=== PATIENT | male | born 1960 | race Caucasian/White ===

== ENCOUNTER 2016-03-19 11:58 | Emergency (ER) | payer MEDICARE, MEDICAID ==
[~2016-03-19] VITALS: Ht 182.9 cm; Wt 149.2 kg
[~2016-03-19 11:58] MED LIST: CHOL1CAP6 PO; FERR324T4 PO; FURO1TAB93 PO; FURO80 PO; LISI-363 PO; METF-324 PO; METO50TA PO; NOVONP2 SQ; NOVORP2 SQ; OMEP20TA39 PO; ONDA1TAB16 PO; PERC5TAB12 PO; SIMV40 PO; TAMS0.4C67 PO; TERA2CAP3 PO; VENL-39 PO
[2016-03-19 11:59] VITALS: BP 141/80; PULSE 69; RESP 20; TEMP 99.2; O2SAT 97
[2016-03-19] MEDS ORDERED: METF500T PO (12:10)
[2016-03-19] MEDS ORDERED: FURO20TA PO (12:10)
[2016-03-19] MEDS ORDERED: METO50TA PO (12:10)
[2016-03-19] MEDS ORDERED: OMEP20TA PO (12:10)
[2016-03-19] MEDS ORDERED: IRON18TA2 PO (12:10)
[2016-03-19] MEDS ORDERED: ORPHENADRINE INJ 60 MG/2 ML AMP IV ONE (12:30)
[2016-03-19] MEDS ORDERED: ONDANSETRON HCL 4 MG/2 ML VIAL IV PUSH ONE (12:30)
[2016-03-19] MEDS ORDERED: DEXAMETHASONE SOD PHOS 4 MG/ML VIAL IV PUSH ONE (12:30)
[2016-03-19] MEDS ORDERED: KETOROLAC TROMETHAMINE 30 MG/ML (IVP) VIAL IV PUSH ONE (12:30)
--- NOTE | 2016-03-19 13:00 | PD ---
HPI Chief Complaint: Musculoskeletal Complaint Time Seen by Provider: 12:00 Travel History International Travel<30 days: No Contact w/Intl Traveler<30days: No Traveled to known affect area: No History of Present Illness HPI Patient is a 55-year-old male who presents emergency department for evaluation of neck pain. Patient states that ongoing for 3 days, he feels tightness at the base of his skull that radiates down. Patient states he has pain if he tries to rotate his head or bend or flex his neck. He denies any injury or trauma. He denies any fevers or chills. He rates his pain an 8 out of 10. He went to the chiropractor this morning who advised him to come to the emergency department. He has not followed up with his primary care provider for this. Patient states he's been taking acetaminophen for the pain. PFSH Past Medical History Hx Anticoagulant Therapy: No Depression: Yes Cancer: No Cardiovascular Problems: Yes High Cholesterol: Yes Chemotherapy: No COPD: Yes ("[facility]IN AT [facility] TOLD ME I HAD IT" 2007) Cerebrovascular Accident: No Diabetes: Yes Patient Takes Glucophage: Yes Diminished Hearing: No Endocrine: Yes Gastrointestinal Disorders: Yes GERD: Yes Genitourinary: Yes Hypertension: Yes Immune Disorder: No Implanted Vascular Access Dvce: No Kidney Stones: Yes Musculoskeletal: Yes Neurologic: Yes Psychiatric: No Reproductive: No Respiratory: Yes (COPD) Immunizations Current: Yes Pneumonia: Yes Sleep Apnea: Yes (narcolepsy) ?: Not Past Surgical History Eye Surgery: Yes (METAL REMOVED FROM LEFT EYE) Neurologic Surgery: No Other Surgery: Yes Family History Family Hypercholesterolemia: Yes (FATHER) Social History Alcohol Use: No Tobacco Use: No Substance Use: No Allergies-Medications (Allergen,Severity, Reaction): Coded Allergies: Tramadol (Verified Adverse Reaction, Severe, Hallucinations, 03/19/16) Reported Meds & Prescriptions Reported Meds & Active Scripts Active Reported Metoprolol Tartrate 50 Mg Tab Unknown Dose PO DAILY Metformin (Metformin HCl) 500 Mg Tab Unknown Dose PO BIDPC With meals Omeprazole 20 Mg Tab Unknown Dose PO DAILY Furosemide 20 Mg Tab Unknown Dose PO DAILY Iron (Ferrous Fumarate) 18 Mg Tab Unknown Dose PO DAILY Review of Systems Except as stated in HPI: all other systems reviewed are Neg General / Constitutional: No: Fever HENT: Positive: Neck Stiffness, No: Headaches Cardiovascular: No: Chest Pain or Discomfort Respiratory: No: Shortness of Breath Musculoskeletal: Positive: Myalgias, Cramping, Pain Physical Exam Narrative GENERAL: Well-nourished, well-developed patient. SKIN: Warm and dry. HEAD: Normocephalic. EYES: No scleral icterus. No injection or drainage. NECK: Supple, trachea midline. No JVD or lymphadenopathy. Decreased range of motion with flexion, extension, and rotation of neck. Tender to palpation at the of his skull in the: Paraspinal musculature in the cervical region. CARDIOVASCULAR: Regular rate and rhythm without murmurs, gallops, or rubs. RESPIRATORY: Breath sounds equal bilaterally. No accessory muscle use. GASTROINTESTINAL: Abdomen soft, non-tender, nondistended. MUSCULOSKELETAL: No cyanosis, or edema. NEUROLOGICAL: Awake and alert. Cranial nerves II through XII intact. Motor and sensory grossly within normal limits. Five out of 5 muscle strength in all muscle groups. Normal speech. BACK: Nontender without obvious deformity. No CVA tenderness. Data Data Last Documented VS Vital Signs Date Time Temp Pulse Resp B/P Pulse Ox O2 Delivery O2 Flow Rate FiO2 03/19/16 13:43 74 20 157/81 97 03/19/16 11:59 99.2 Orders Ketorolac Inj (Toradol Inj) (03/19/16 12:30) Ondansetron Inj (Zofran Inj) (03/19/16 12:30) Orphenadrine Inj (Norflex Inj) (03/19/16 12:30) Dexamethasone Inj (Decadron Inj) (03/19/16 12:30) Spine, Cervical Compl(Cuv2ksr) (03/19/16 ) Morphine Inj (Morphine Inj) (03/19/16 13:30) [facility] Medical Decision Making Medical Screen Exam Complete: Yes Emergency Medical Condition: Yes Interpretation(s) Last Impressions Cervical Spine X-Ray 03/19/16 0000 Draft Impressions: Service Date/Time: March 13:22 - CONCLUSION: 1. Mild osteoarthritis as described above. Андрей Christine MD Vital Signs Date Time Temp Pulse Resp B/P Pulse Ox O2 Delivery O2 Flow Rate FiO2 03/19/16 11:59 99.2 69 20 141/80 97 Differential Diagnosis Spasm versus strain versus brain versus discogenic pain versus other Narrative Course Patient is a 55-year-old male who presented to emergency for evaluation of neck pain. Pain started approximately 3 days ago, patient presented to his chiropractor was subsequently sent to emergency room for imaging. Patient has had no injury or trauma. Physical examination appears most consistent with muscle strain, spasm. Patient was given Toradol, Norflex, dexamethasone emergency department. He continued to have pain and was evaluated by my attending physician. Imaging of the cervical spine was ordered. IV morphine ordered per my attending physician. Imaging of the cervical spine showed chronic changes, no acute injury. There is degenerative disc disease with disc space narrowing a marginal osteophyte formation at C4 to C5, mild foraminal narrowing bilaterally at C4 to C5 the odontoid is intact, there is no widening of the atlantoaxial space. Mild osteoarthritis noted. Patient is observed resting comfortably, he was advised on findings regarding x- ray of his neck. He was encouraged to take medications as directed, follow up with his primary doctor at the [facility], continue range of motion exercises, alternate heat and ice to affected area. He was encouraged to return to emergency department for any new or worsening symptoms. He verbalized understanding of these instructions. Patient is stable for discharge. Diagnosis Primary Impression: Cervical muscle strain Qualified Code: S16.1XXA - Cervical muscle strain, initial encounter Additional Impression: Cervical paraspinal muscle spasm Referrals: Primary Care Physician 2 days Patient Instructions: Cervical Neck Strain Exercises (GEN), Cervical Strain (ED ), General Instructions, Muscle Spasm (ED), Muscle Strain (ED), Neck Pain (ED) Additional Instructions: Follow-up with your primary doctor at the [facility] Take medications as directed Return to emergency department for any new or worsening symptoms Continue range of motion exercises, alternate heat and ice to affected area, avoid bed rest, avoid exacerbating activities Med/Other Pt SpecificInfo: Prescription(s) given Scripts Cyclobenzaprine (Flexeril)10 Mg Tab10 Mg PO TID PRN (MUSCLE SPASM) 10 Days Ref 0 Prov:Sarah Márquez 03/19/16 Ibuprofen 800 Mg [id number] Mg PO Q8H PRN (Pain/Inflammation) 7 Days Ref 0 Prov:Sarah Márquez 03/19/16 Disposition: 01 DISCHARGE HOME Condition: Stable Sarah Márquez Mar 19, 2016 13:00
[2016-03-19] MEDS ORDERED: MORPHINE SULFATE 8 MG/ML INJ IV PUSH ONE (13:30)
[2016-03-19 13:43] VITALS: BP 157/81; PULSE 74; RESP 20; O2SAT 97
--- NOTE | 2016-03-19 14:10 | RADHPO ---
EXAM DATE/TIME: 03/19/2016 13:22 [facility] COMPARISON: No previous studies available for comparison. INDICATIONS : Neck pain, no known injury. MEDICAL HISTORY : None. SURGICAL HISTORY : None. ENCOUNTER: Initial ACUITY: 3 days PAIN SCORE: 9/10 LOCATION: neck FINDINGS: There is straightening of the normal cervical lordosis which may be secondary positioning or spasm. T here is degenerative disc disease with disc space narrowing and marginal osteophyte formation at C4-C 5. There is mild foraminal narrowing bilaterally at C4-C5. The odontoid is intact. There is no wideni ng of the atlantoaxial space. CONCLUSION: 1. Mild osteoarthritis as described above. Андрей Christine MD on March 19, 2016 at 14:08 Board Certified Radiologist. This report was verified electronically.
[2016-03-19] MEDS ORDERED: IBUP800T23 PO (14:28)
[2016-03-19] MEDS ORDERED: CYCL1TAB29 PO (14:28)
[2016-03-19] MEDS ORDERED: PERC5TAB12 PO (14:29)
== END 2016-03-19 14:47 | disposition home or self-care (01) ==
LOC: PHEFT 11:58
DX: S16.1XXA Strain of muscle, fascia and tendon at neck level, initial encounter (principal); M62.838 Other muscle spasm; E78.00 Pure hypercholesterolemia, unspecified; I10 Essential (primary) hypertension; Z87.442 Personal history of urinary calculi
CPT/HCPCS: 72050; 96374; 96375; 99283; J1100; J1885; J2270; J2360; J2405

== ENCOUNTER 2016-05-23 21:20 | Emergency (ER) | payer MEDICARE, OTHER, MEDICAID ==
[~2016-05-23] VITALS: Ht 182.9 cm; Wt 139.7 kg
[~2016-05-23 21:20] MED LIST changes: -CHOL1CAP6 PO; +CYCL1TAB29 PO; -FERR324T4 PO; -FURO1TAB93 PO; +FURO20TA PO; -FURO80 PO; +IBUP800T23 PO; +IRON18TA2 PO; -LISI-363 PO; -METF-324 PO; +METF500T PO; -NOVONP2 SQ; -NOVORP2 SQ; +OMEP20TA PO; -OMEP20TA39 PO; -ONDA1TAB16 PO; -SIMV40 PO; -TAMS0.4C67 PO; -TERA2CAP3 PO; -VENL-39 PO
[2016-05-23 21:39] VITALS: BP 138/73; PULSE 92; RESP 18; TEMP 97.8; O2SAT 95
[2016-05-23 21:56] VITALS: BP 138/73; PULSE 92; RESP 18; TEMP 97.8; O2SAT 95
[2016-05-23] MEDS ORDERED: LISI-519 PO (22:07)
[2016-05-23] MEDS ORDERED: cholesterol med (22:07)
[2016-05-23] MEDS ORDERED: PHENYLEPHRINE HCL 1% NASAL SPRAY 15 ML BTL NASAL ONE (22:45)
[2016-05-23] MEDS ORDERED: PHENYLEPHRINE HCL 0.5% NASAL SPRAY 15 ML BTL NASAL ONE (23:00)
--- NOTE | 2016-05-23 23:11 | PD ---
HPI Chief Complaint: Nosebleed Time Seen by Provider: 22:43 Travel History International Travel<30 days: No Contact w/Intl Traveler<30days: No Traveled to known affect area: No History of Present Illness HPI The patient is a 56-year-old male that noticed bleeding from his left nostril for 4 days intermittently. He is not on any anticoagulants. He does not have a history of hypertension. He denies any direct trauma, he thinks of blood vessel just broke. He states he put something in his left nostril and it started bleeding out of his right. He denies any fever. He was seen by the [facility] 4 days ago for this and they gave him prescription for saline solution and Afrin. This does not work according to the patient. The patient has PTSD and is disabled for this. He is extremely anxious. PFSH Past Medical History Hx Anticoagulant Therapy: No Depression: Yes Cancer: No Cardiovascular Problems: Yes High Cholesterol: Yes Chemotherapy: No COPD: Yes ("VIPIN AT [facility] TOLD ME I HAD IT" 2007) Cerebrovascular Accident: No Diabetes: Yes Patient Takes Glucophage: No Diminished Hearing: No Endocrine: Yes Gastrointestinal Disorders: Yes GERD: Yes Genitourinary: Yes Hypertension: Yes Immune Disorder: No Implanted Vascular Access Dvce: No Kidney Stones: Yes Musculoskeletal: Yes Neurologic: Yes Psychiatric: No Reproductive: No Respiratory: Yes (COPD) Immunizations Current: Yes Pneumonia: Yes Sleep Apnea: Yes (narcolepsy) ?: Not Past Surgical History Eye Surgery: Yes (METAL REMOVED FROM LEFT EYE) Neurologic Surgery: No Other Surgery: Yes Family History Family Hypercholesterolemia: Yes (FATHER) Social History Alcohol Use: No Tobacco Use: No Substance Use: No Allergies-Medications (Allergen,Severity, Reaction): Coded Allergies: Tramadol (Verified Adverse Reaction, Severe, Hallucinations, 03/19/16) Reported Meds & Prescriptions Reported Meds & Active Scripts Active Amoxicillin 875 Mg Tab 875 Mg PO BID 10 Days Percocet (Oxycodone-Acetaminophen) 5-325 mg Tab 1 Tab PO Q6H PRN Ibuprofen 800 Mg Tab 800 Mg PO Q8H PRN 7 Days Reported Lisinopril 5 Mg Tab 5 Mg PO DAILY [cholesterol med] Metoprolol Tartrate 50 Mg Tab Unknown Dose PO DAILY Metformin (Metformin HCl) 500 Mg Tab Unknown Dose PO BIDPC With meals Omeprazole 20 Mg Tab Unknown Dose PO DAILY Furosemide 20 Mg Tab Unknown Dose PO DAILY Iron (Ferrous Fumarate) 18 Mg Tab Unknown Dose PO DAILY Review of Systems Except as stated in HPI: all other systems reviewed are Neg Physical Exam Narrative GENERAL: The patient is obese, alert, oriented 3. He is anxious and talks frequently. His vital signs are normal. SKIN: Focused skin assessment warm/dry. ENT: There is no blood in the right nares. The left nares is not bleeding at this time and there is very little blood in the anterior portion of the nose. I cannot see any area that needs to be cauterized. I can see blood in the posterior area of the left nares. No blood is coursing down the posterior pharyngeal wall. EYES: No scleral icterus. No injection or drainage. NECK: Supple, trachea midline. No JVD or lymphadenopathy. CARDIOVASCULAR: Regular rate and rhythm without murmurs, gallops, or rubs. RESPIRATORY: Breath sounds equal bilaterally. No accessory muscle use. GASTROINTESTINAL: Abdomen soft, non-tender, nondistended. MUSCULOSKELETAL: No cyanosis, or edema. BACK: Nontender without obvious deformity. No CVA tenderness. Data Data Last Documented VS Vital Signs Date Time Temp Pulse Resp B/P Pulse Ox O2 Delivery O2 Flow Rate FiO2 05/23/16 21:56 97.8 92 18 138/73 95 Orders Phenylephrine 0.5% Roby Spr (Neosynephrin (05/23/16 23:00) Amoxicillin (Trimox) (05/23/16 23:45) MDM Medical Decision Making Medical Screen Exam Complete: Yes Emergency Medical Condition: Yes Medical Record Reviewed: Yes Differential Diagnosis Anterior epistaxis, posterior epistaxis, septal perforation Narrative Course I could not find an area cauterized anteriorly. He likely has posterior epistaxis. He did bleed slightly but no bleeding was present anteriorly. A 5 cm Rhino Rocket packing was put in and the patient has not bled, we have watched him now for about an hour. There is no blood coursing down the posterior pharyngeal wall. [facility] or an tablet making machine operator to have the packing removed early next week. Procedures Procedure Narrative The patient did not tolerate a posterior packing 7.5 cm. I put a smaller one in and he is barely able to tolerate this. Fortunately, no blood is coming out anteriorly nor down the posterior pharyngeal wall. Diagnosis Primary Impression: Acute posterior epistaxis Additional Instructions: As we discussed, avoid coughing, sneezing, straining, excessive talking, nasal manipulation of any kind and try to rest as best he can. Follow-up with an ear nose and throat physician (tablet making machine operator). You should call Wednesday to set up an appointment. The packing should come out early next week. The amoxicillin is one tablet twice daily for 10 days. Scripts Amoxicillin 875 Mg [id number] Mg PO BID 10 Days Ref 0 Prov:Misha Osorio MD 05/23/16 Disposition: 01 DISCHARGE HOME Condition: Stable Misha Osorio MD May 23, 2016 23:11
[2016-05-23] MEDS ORDERED: AMOX875T PO (23:36)
[2016-05-23] MEDS ORDERED: AMOXICILLIN 875 MG TAB PO ONE (23:45)
== END 2016-05-24 00:07 | disposition home or self-care (01) ==
LOC: PHEFT 21:20
DX: R04.0 Epistaxis (principal)
CPT/HCPCS: 30905

== ENCOUNTER 2017-03-21 11:39 | Emergency (ER) | payer OTHER, MEDICARE, MEDICAID ==
[~2017-03-21] VITALS: Ht 182.9 cm; Wt 135.5 kg
[~2017-03-21 11:39] MED LIST changes: +AMOX875T PO; -CYCL1TAB29 PO; +IBUP1TAB7 PO; -IBUP800T23 PO; +LISI-519 PO; -OMEP20TA PO; +OMEP20TA93 PO; +cholesterol med
[2017-03-21 12:19] VITALS: BP 126/67; PULSE 87; RESP 16; TEMP 98.8; O2SAT 95
[2017-03-21] MEDS ORDERED: NOVORP2 SQ (12:39)
[2017-03-21] MEDS ORDERED: NOVONP2 SQ (12:39)
--- NOTE | 2017-03-21 12:39 | PD ---
HPI Chief Complaint: Cold / Flu Symptoms Time Seen by Provider: 12:29 Travel History International Travel<30 days: No Contact w/Intl Traveler<30days: No Traveled to known affect area: No History of Present Illness HPI Patient has a 56-year-old male presents emergency department with fever congestion body aches nausea without vomiting for the past 2 days. He states he thinks he got a flu. He has a history of COPD after an infection in the disease. left him with denies any sputum production. Denies any abdominal pain. States symptoms are moderate, gradually worsening over the past few days contacts as above. T-max at home is to 101. PFSH Past Medical History Hx Anticoagulant Therapy: No Depression: Yes Cancer: No Cardiovascular Problems: Yes High Cholesterol: Yes Chemotherapy: No COPD: Yes ("[facility] AT [facility] TOLD ME I HAD IT" 2007) Cerebrovascular Accident: No Diabetes: Yes Patient Takes Glucophage: No Diminished Hearing: No Endocrine: Yes Gastrointestinal Disorders: Yes GERD: Yes Genitourinary: Yes Hypertension: Yes Immune Disorder: No Implanted Vascular Access Dvce: No Kidney Stones: Yes Musculoskeletal: Yes Neurologic: Yes Psychiatric: No Reproductive: No Respiratory: Yes (COPD) Immunizations Current: Yes Pneumonia: Yes Sleep Apnea: Yes (narcolepsy) Past Surgical History Eye Surgery: Yes (METAL REMOVED FROM LEFT EYE) Neurologic Surgery: No Other Surgery: Yes Family History Family Hypercholesterolemia: Yes (FATHER) Social History Alcohol Use: No Tobacco Use: No Substance Use: No Allergies-Medications (Allergen,Severity, Reaction): Coded Allergies: tramadol (Unverified Adverse Reaction, Severe, Hallucinations, 03/21/17) Reported Meds & Prescriptions Reported Meds & Active Scripts Active Proair Hfa 8.5 GM Inh (Albuterol Sulfate) 90 Mcg/Act Aer 2 Puff INH Q4-6H PRN 108 mcg/actuation Tessalon Perles (Benzonatate) 100 Mg Cap 100 Mg PO TID PRN Prednisone 20 Mg Tab 40 Mg PO DAILY 5 Days Take 40 mg (2 tablets) daily for 5 days Zofran (Ondansetron HCl) 4 Mg Tab 4 Mg PO Q6HR PRN Tamiflu (Oseltamivir Phosphate) 75 Mg Cap 75 Mg PO BID 5 Days Reported Novolin R Inj (Insulin Human Regular) 1,000 Unit/10 Ml Vial 1 Units SQ ONCE Novolin N Inj (Insulin Human NPH) 1,000 Unit/10 Ml Vial 1 Units SQ ONCE Lisinopril 5 Mg Tab 5 Mg PO DAILY [cholesterol med] Metoprolol Tartrate 50 Mg Tab Unknown Dose PO DAILY Omeprazole 20 Mg Tab Unknown Dose PO DAILY Furosemide 20 Mg Tab Unknown Dose PO DAILY Review of Systems Except as stated in HPI: all other systems reviewed are Neg Physical Exam Narrative GENERAL: Well-developed well-nourished no obvious distress SKIN: Focused skin assessment warm/dry. HEAD: Atraumatic. Normocephalic. EYES: Pupils equal and round. No scleral icterus. No injection or drainage. ENT: No nasal bleeding or discharge. Mucous membranes pink and moist. TMs clear bilaterally, oropharynx with mild erythema, uvula midline, no edema, airway widely patent. NECK: Trachea midline. No JVD. CARDIOVASCULAR: Regular rate and rhythm. No murmur appreciated. RESPIRATORY: No accessory muscle use. Expiratory wheezing only, no accessory muscle use, no retractions.. Breath sounds equal bilaterally. GASTROINTESTINAL: Abdomen soft, non-tender, nondistended. Hepatic and splenic margins not palpable. MUSCULOSKELETAL: No obvious deformities. No clubbing. No cyanosis. No edema. NEUROLOGICAL: Awake and alert. No obvious cranial nerve deficits. Motor grossly within normal limits. Normal speech. PSYCHIATRIC: Appropriate mood and affect; insight and judgment normal. Data Data Last Documented VS Vital Signs Date Time Temp Pulse Resp B/P (MAP) Pulse Ox O2 Delivery O2 Flow Rate FiO2 03/21/17 12:19 98.8 87 16 126/67 (86) 95 Orders Orders Chest, Pa & Lat (03/21/17 ) Albuterol-Ipratropium Neb (Duoneb Neb) (03/21/17 12:45) Ondansetron Odt (Zofran Odt) (03/21/17 12:45) Ed Discharge Order (03/21/17 14:03) MDM Medical Decision Making Medical Screen Exam Complete: Yes Emergency Medical Condition: Yes Differential Diagnosis Bronchitis, influenza-like symptoms, pneumonia unlikely. Narrative Course Last 24 hours Impressions Chest X-Ray 03/21/17 0000 Signed Impressions: Service Date/Time: Tuesday, March 21, 2017 13:36 - CONCLUSION: No acute cardiopulmonary disease. Jennifer Bishop MD Patient roomed emergency department, signs symptoms consistent with bronchitis and posed on influenza. Will be covered with steroids, Tamiflu. Discussed with him symptomatic management returned ED criteria, discussed close monitoring of blood sugar while on steroids. Discussed follow-up with a primary care physician. He is stable for discharge. Diagnosis Primary Impression: Influenza Additional Impression: Bronchitis Additional Instructions: He may notice that your sugar his somewhat more elevated over the next few days by taking steroids. If you start running high fevers become short of breath please return to the emergency department. Med/Other Pt SpecificInfo: Prescription(s) given Scripts Albuterol 8.5 GM Inh (Proair Hfa 8.5 GM Inh) 90 Mcg/Act Aer 2 PUFF INH Q4-6H Y for SHORTNESS OF BREATH, #1 INHALER 1 Refill 108 mcg/actuation Prov: Jaison Laura MD 03/21/17 Benzonatate (Tessalon Perles) 100 Mg Cap 100 MG PO TID Y for COUGH, #20 CAP 0 Refills Prov: Jaison Laura MD 03/21/17 Prednisone (Prednisone) 20 Mg Tab 40 MG PO DAILY for 5 Days, #10 TAB 0 Refills Take 40 mg (2 tablets) daily for 5 days Prov: Jaison Laura MD 03/21/17 Ondansetron (Zofran) 4 Mg Tab 4 MG PO Q6HR Y for NAUSEA OR VOMITING, #20 TAB 0 Refills Prov: Jaison Laura MD 03/21/17 Oseltamivir (Tamiflu) 75 Mg Cap 75 MG PO BID for Mgmt Viral Infection for 5 Days, #10 CAP 0 Refills Prov: Jaison Laura MD 03/21/17 Disposition: 01 DISCHARGE HOME Condition: Stable Jaison Laura MD Mar 21, 2017 12:39
[2017-03-21] MEDS ORDERED: ONDANSETRON ODT 4 MG TAB PO ONE (12:45)
[2017-03-21] MEDS ORDERED: RESP: ALBUTEROL 2.5 MG/IPRATROPIUM 0.5 MG NEB (SCH) NEB ONE (12:45)
[2017-03-21] MEDS ORDERED: PRED20 PO (14:01)
[2017-03-21] MEDS ORDERED: BENZ100 PO (14:01)
[2017-03-21] MEDS ORDERED: OSEL75 PO (14:01)
[2017-03-21] MEDS ORDERED: ZOFR4TAB PO (14:01)
[2017-03-21] MEDS ORDERED: ALBUAER3 INH (14:03)
--- NOTE | 2017-03-21 14:13 | RADRPT ---
EXAM DATE/TIME: 03/21/2017 13:36 [facility] COMPARISON: CHEST SINGLE AP, October 20, 2014, 17:54. INDICATIONS : Cough, short of breath, fever MEDICAL HISTORY : Chronic obstructive pulmonary disease. Diabetes mellitus type II. Hypertension. SURGICAL HISTORY : None. ENCOUNTER: Initial ACUITY: 3 days PAIN SCORE: 9/10 LOCATION: Bilateral chest FINDINGS: The lungs are clear without infiltrate, nodule, or mass. There is no appreciable pleural effusion fo r technique. Heart and mediastinum are unremarkable. CONCLUSION: No acute cardiopulmonary disease. Jennifer Bishop MD on March 21, 2017 at 14:10 Board Certified Radiologist. This report was verified electronically.
== END 2017-03-21 14:30 | disposition home or self-care (01) ==
LOC: PHEFT 11:39
DX: J11.1 Influenza due to unidentified influenza virus with other respiratory manifestations (principal); J40 Bronchitis, not specified as acute or chronic; J44.9 Chronic obstructive pulmonary disease, unspecified; E11.9 Type 2 diabetes mellitus without complications; I10 Essential (primary) hypertension
CPT/HCPCS: 71046; 94664; 99284

== ENCOUNTER 2017-03-29 17:45 | Emergency (ER) | payer OTHER, MEDICARE, MEDICAID ==
[~2017-03-29] VITALS: Ht 182.9 cm; Wt 141.0 kg
[~2017-03-29 17:45] MED LIST changes: +ALBUAER3 INH; -AMOX875T PO; +BENZ100 PO; -IBUP1TAB7 PO; -IRON18TA2 PO; -METF500T PO; +NOVONP2 SQ; +NOVORP2 SQ; +OSEL75 PO; -PERC5TAB12 PO; +PRED20 PO; +ZOFR4TAB PO
[2017-03-29 18:15] VITALS: BP 143/66; PULSE 86; RESP 18; TEMP 98.7; O2SAT 97
[2017-03-29] MEDS ORDERED: predniSONE 20 MG TAB PO ONE (20:00)
--- NOTE | 2017-03-29 20:00 | PD ---
HPI Chief Complaint: Respiratory Symptoms Time Seen by Provider: 19:54 Travel History International Travel<30 days: No Contact w/Intl Traveler<30days: No Traveled to known affect area: No History of Present Illness HPI The patient is a 56-year-old male that states he had the flu and is on Tamiflu for this but in the last 4 days has been wheezing and has a cough productive of clear/white sputum. He denies any fever. He has pleuritic chest pain and myalgias. He is only minimally short of breath. He does not smoke. PFSH Past Medical History Hx Anticoagulant Therapy: No Depression: Yes Cancer: No Cardiovascular Problems: Yes High Cholesterol: Yes Chemotherapy: No COPD: Yes ("[facility] [place] TOLD ME I HAD IT" 2007) Cerebrovascular Accident: No Diabetes: Yes Patient Takes Glucophage: No Diminished Hearing: No Endocrine: Yes Gastrointestinal Disorders: Yes GERD: Yes Genitourinary: Yes Hypertension: Yes Immune Disorder: No Implanted Vascular Access Dvce: No Kidney Stones: Yes Musculoskeletal: Yes Neurologic: Yes Psychiatric: No Reproductive: No Respiratory: Yes (COPD, pneumonia, bronchitis) Immunizations Current: Yes Pneumonia: Yes Sleep Apnea: Yes (narcolepsy) Tetanus Vaccination: > 5 Years Influenza Vaccination: Yes Past Surgical History Eye Surgery: Yes (METAL REMOVED FROM LEFT EYE) Neurologic Surgery: No Other Surgery: Yes Family History Family Hypercholesterolemia: Yes (FATHER) Social History Alcohol Use: No Tobacco Use: No Substance Use: Yes (marijuana ) Allergies-Medications (Allergen,Severity, Reaction): Coded Allergies: tramadol (Unverified Adverse Reaction, Severe, Hallucinations, 03/29/17) Reported Meds & Prescriptions Reported Meds & Active Scripts Active Proair Hfa 8.5 GM Inh (Albuterol Sulfate) 90 Mcg/Act Aer 2 Puff INH Q4-6H PRN 108 mcg/actuation Tessalon Perles (Benzonatate) 100 Mg Cap 100 Mg PO TID PRN Reported Novolin R Inj (Insulin Human Regular) 1,000 Unit/10 Ml Vial 1 Units SQ ONCE Novolin N Inj (Insulin Human NPH) 1,000 Unit/10 Ml Vial 1 Units SQ ONCE Lisinopril 5 Mg Tab 5 Mg PO DAILY [cholesterol med] Metoprolol Tartrate 50 Mg Tab Unknown Dose PO DAILY Omeprazole 20 Mg Tab Unknown Dose PO DAILY Furosemide 20 Mg Tab Unknown Dose PO DAILY Review of Systems Except as stated in HPI: all other systems reviewed are Neg Physical Exam Narrative GENERAL: The patient is alert, obese, oriented 3 in no respiratory distress. His oximetry is 97% on room air and the rest of his vital signs are also normal. SKIN: Focused skin assessment warm/dry. HEAD: Atraumatic. Normocephalic. EYES: Pupils equal and round. No scleral icterus. No injection or drainage. ENT: No nasal bleeding or discharge. Mucous membranes pink and moist. NECK: Trachea midline. No JVD. CARDIOVASCULAR: Regular rate and rhythm. No murmur appreciated. RESPIRATORY: No accessory muscle use. Bilateral wheezes are heard in all lung munguia. Breath sounds equal bilaterally. GASTROINTESTINAL: Abdomen soft, non-tender, nondistended. Hepatic and splenic margins not palpable. MUSCULOSKELETAL: No obvious deformities. No clubbing. No cyanosis. No edema. NEUROLOGICAL: Awake and alert. No obvious cranial nerve deficits. Motor grossly within normal limits. Normal speech. PSYCHIATRIC: Appropriate mood and affect; insight and judgment normal. Data Data Last Documented VS Vital Signs Date Time Temp Pulse Resp B/P (MAP) Pulse Ox O2 Delivery O2 Flow Rate FiO2 03/29/17 20:37 78 20 96 Room Air 03/29/17 18:15 98.7 143/66 (91) Orders Orders Albuterol-Ipratropium Neb (Duoneb Neb) (03/29/17 20:00) Prednisone (Deltasone) (03/29/17 20:00) Chest, Pa & Lat (03/29/17 20:00) [facility] Medical Decision Making Medical Screen Exam Complete: Yes Emergency Medical Condition: Yes Medical Record Reviewed: Yes Interpretation(s) The chest x-ray shows mild perihilar infiltrates-possible viral pneumonitis. Differential Diagnosis Bronchitis, pneumonia, flu syndrome, hypoxemia-unlikely Narrative Course The patient has pneumonitis. He does have significant wheezing and will be put on Zithromax. The patient did get some relief with the DuoNeb treatments. He does not have a nebulizer machine at home. Impression: Pneumonitis Plan: The patient be given an albuterol HFA along with 5 days of prednisone to take at home daily 50 mg and Zithromax for 5 days. Diagnosis Primary Impression: Pneumonitis Additional Impression: Bronchospasm Additional Instructions: Both the prednisone and the Zithromax are taken one tablet daily for 5 days. Every 4 hours you can use the albuterol puffer to help with the wheezing. Follow-up with her primary care physician this week. If worse, you may need to return to the emergency department for reevaluation. Med/Other Pt SpecificInfo: Prescription(s) given Scripts Azithromycin (Zithromax) 500 Mg Tab 500 MG PO DAILY for Infection for 5 Days, #5 TAB 0 Refills Prov: Misha Osorio MD 03/29/17 Prednisone (Prednisone) 50 Mg Tab 50 MG PO DAILY for 5 Days, #5 TAB 0 Refills Prov: Misha Osorio MD 03/29/17 Albuterol 8.5 GM Inh (Proair Hfa 8.5 GM Inh) 90 Mcg/Act Aer 2 PUFF INH Q4-6H Y for SHORTNESS OF BREATH, #1 INHALER 0 Refills 108 mcg/actuation Prov: Misha Osorio MD 03/29/17 Disposition: 01 DISCHARGE HOME Condition: Stable Misha Osorio MD Mar 29, 2017 20:00
[2017-03-29] MEDS: RESP: ALBUTEROL 2.5 MG/IPRATROPIUM 0.5 MG NEB (SCH) INH ×2 (20:09→20:10)
[2017-03-29 20:37] VITALS: PULSE 78; RESP 20; O2SAT 96
--- NOTE | 2017-03-29 21:43 | RADRPT ---
EXAM DATE/TIME: 03/29/2017 20:22 [place] COMPARISON: CHEST PA & LAT, March 21, 2017, 13:36. INDICATIONS : Wheezing. MEDICAL HISTORY : Hypertension. Chronic obstructive pulmonary disease. Diabetes mellitus type II. SURGICAL HISTORY : None. ENCOUNTER: Initial ACUITY: 1 day PAIN SCORE: 0/10 LOCATION: Bilateral chest FINDINGS: Mild perihilar infiltrates are noted consistent with possible viral pneumonitis. Clinical correlation is recommended. The heart is stable. No focal alveolar infiltrate noted. CONCLUSION: Mild perihilar infiltrates next with possible viral pneumonitis. Clinical correlation is recommended. Jaison Ivey MD on March 29, 2017 at 21:40 Board Certified Radiologist. This report was verified electronically.
[2017-03-29] MEDS ORDERED: ZITH500T PO (21:53)
[2017-03-29] MEDS ORDERED: ALBUAER3 INH (21:53)
[2017-03-29] MEDS ORDERED: PRED50 PO (21:53)
[2017-03-29] MEDS ORDERED: AZITHROMYCIN 250 MG TAB PO ONE (22:00)
[2017-03-29 22:05] VITALS: BP 148/85
== END 2017-03-29 22:07 | disposition home or self-care (01) ==
LOC: PHED 17:45
DX: J18.9 Pneumonia, unspecified organism (principal); J98.01 Acute bronchospasm; J44.0 Chronic obstructive pulmonary disease with (acute) lower respiratory infection; I10 Essential (primary) hypertension; E78.00 Pure hypercholesterolemia, unspecified; E11.9 Type 2 diabetes mellitus without complications; K21.9 Gastro-esophageal reflux disease without esophagitis; F32.9 Major depressive disorder, single episode, unspecified; Z87.442 Personal history of urinary calculi; Z88.8 Allergy status to other drugs, medicaments and biological substances; Z79.899 Other long term (current) drug therapy; Z79.4 Long term (current) use of insulin
CPT/HCPCS: 71046; 94640; 94664; 99284; J7512

== ENCOUNTER 2017-07-23 09:13 | Emergency (ER) | payer OTHER, MEDICARE ==
[~2017-07-23] VITALS: Ht 182.9 cm; Wt 145.2 kg
[~2017-07-23 09:13] MED LIST changes: -OSEL75 PO; -PRED20 PO; +PRED50 PO; +ZITH500T PO; -ZOFR4TAB PO
[2017-07-23 09:16] VITALS: BP 174/84; PULSE 78; RESP 18; TEMP 98.2; O2SAT 96
--- NOTE | 2017-07-23 09:42 | PD ---
HPI Chief Complaint: Respiratory Symptoms Time Seen by Provider: 09:36 Travel History International Travel<30 days: No Contact w/Intl Traveler<30days: No Traveled to known affect area: No History of Present Illness HPI 57-year-old male presents to the emergency department sent by the [place] for evaluation of shortness of breath for 3 days. Patient states he had an upper respiratory infection approximately 3 weeks ago. He states that he has not quite recovered from that. He reports increasing shortness of breath over the past 3 days. He states it is worse with exertion. [facility] his [facility]. He is currently on Lasix 40 mg twice daily. He is taking this as prescribed. Patient states he has "chest tension" 7/10, feels like he cannot get a deep breath. Patient also reports abdominal bloating and states he has been burping a lot. He also states that he had an issue with his CPAP mask and has been sleeping on his belly which he attributes to the burping. No abdominal pain. No nausea, vomiting, diarrhea. No recent surgery or travel. No history DVT or PE. No hemoptysis. Patient is not tachycardic. He denies any new leg edema. Moderate severity. PFSH Past Medical History Hx Anticoagulant Therapy: No Depression: Yes Cancer: No Cardiovascular Problems: Yes High Cholesterol: Yes Chemotherapy: No COPD: Yes ("[facility] AT [place] TOLD ME I HAD IT" 2007) Cerebrovascular Accident: No Diabetes: Yes Diminished Hearing: No Endocrine: Yes Gastrointestinal Disorders: Yes GERD: Yes Genitourinary: Yes Hypertension: Yes Immune Disorder: No Implanted Vascular Access Dvce: No Kidney Stones: Yes Musculoskeletal: Yes Neurologic: Yes Psychiatric: No Reproductive: No Respiratory: Yes (COPD, pneumonia, bronchitis) Immunizations Current: Yes Pneumonia: Yes Sleep Apnea: Yes (narcolepsy) Past Surgical History Eye Surgery: Yes (METAL REMOVED FROM LEFT EYE) Neurologic Surgery: No Other Surgery: Yes Family History Family Hypercholesterolemia: Yes (FATHER) Social History Alcohol Use: No Tobacco Use: No Substance Use: Yes (marijuana ) Allergies-Medications (Allergen,Severity, Reaction): Coded Allergies: tramadol (Unverified Adverse Reaction, Severe, Hallucinations, 07/23/17) Reported Meds & Prescriptions Reported Meds & Active Scripts Active Reported Lasix (Furosemide) 40 Mg Tab 40 Mg PO BID Metformin (Metformin HCl) 1,000 Mg Tab 1,000 Mg PO DAILY With a meal Venlafaxine ER 24 HR (Venlafaxine HCl) 150 Mg Tab 150 Mg PO DAILY Novolin N U-100 Inj (Insulin NPH (Human) (Isophane) Inj) 100 Unit/Ml Inj Zocor (Simvastatin) 20 Mg Tab 20 Mg PO DAILY Novolin R Inj (Insulin Human Regular) 1,000 Unit/10 Ml Vial 1 Units SQ ONCE Novolin N Inj (Insulin Human NPH) 1,000 Unit/10 Ml Vial 1 Units SQ ONCE Lisinopril 5 Mg Tab 5 Mg PO DAILY Metoprolol Tartrate 50 Mg Tab Unknown Dose PO DAILY Omeprazole 20 Mg Tab Unknown Dose PO DAILY Review of Systems Except as stated in HPI: all other systems reviewed are Neg Physical Exam Narrative GENERAL: Well-nourished, well-developed morbidly obese male patient, afebrile. SKIN: Focused skin assessment warm/dry. HEAD: Normocephalic. Atraumatic. EYES: No scleral icterus. No injection or drainage. NECK: Supple, trachea midline. No JVD or lymphadenopathy. CARDIOVASCULAR: Regular rate and rhythm without murmurs, gallops, or rubs. Bilateral radial and pedal pulses are 2+. RESPIRATORY: Breath sounds equal bilaterally. No accessory muscle use. Lung sounds are clear to auscultation. GASTROINTESTINAL: Abdomen soft, non-tender, nondistended. MUSCULOSKELETAL: No cyanosis, or edema. BACK: Nontender without obvious deformity. No CVA tenderness. Data Data Last Documented VS Vital Signs Date Time Temp Pulse Resp B/P (MAP) Pulse Ox O2 Delivery O2 Flow Rate FiO2 07/23/17 09:50 97 Room Air 07/23/17 09:16 98.2 78 18 174/84 (114) Orders Orders Complete Blood Count With Diff (07/23/17 09:36) Comprehensive Metabolic Panel (07/23/17 09:36) B-Type Natriuretic Peptide (07/23/17 09:36) Act Partial Throm Time (Ptt) (07/23/17 09:36) Prothrombin Time / Inr (Pt) (07/23/17 09:36) Magnesium (Mg) (07/23/17 09:36) Ckmb (Isoenzyme) Profile (07/23/17 09:36) Troponin I (07/23/17 09:36) Iv Access Insert/Monitor (07/23/17 09:36) Electrocardiogram (07/23/17 09:36) Ecg Monitoring (07/23/17 09:36) Oximetry (07/23/17 09:36) Oxygen Administration (07/23/17 09:36) Chest, Single Ap (07/23/17 09:36) Sodium Chloride 0.9% Flush (Ns Flush) (07/23/17 09:45) CKMB (07/23/17 10:30) CKMB% (07/23/17 10:30) Furosemide Inj (Lasix Inj) (07/23/17 11:15) Labs Laboratory Tests Test 07/23/17 10:30 White Blood Count 13.4 TH/MM3 Red Blood Count 3.81 MIL/MM3 Hemoglobin 9.9 GM/DL Hematocrit 31.7 % Mean Corpuscular Volume 83.3 FL Mean Corpuscular Hemoglobin 26.1 PG Mean Corpuscular Hemoglobin Concent 31.4 % Red Cell Distribution Width 14.9 % Platelet Count 248 TH/MM3 Mean Platelet Volume 10.8 FL Neutrophils (%) (Auto) 75.9 % Lymphocytes (%) (Auto) 15.2 % Monocytes (%) (Auto) 6.0 % Eosinophils (%) (Auto) 2.4 % Basophils (%) (Auto) 0.5 % Neutrophils # (Auto) 10.2 TH/MM3 Lymphocytes # (Auto) 2.0 TH/MM3 Monocytes # (Auto) 0.8 TH/MM3 Eosinophils # (Auto) 0.3 TH/MM3 Basophils # (Auto) 0.1 TH/MM3 CBC Comment DIFF FINAL Differential Comment Prothrombin Time 10.5 SEC Prothromb Time International Ratio 1.0 RATIO Activated Partial Thromboplast Time 28.5 SEC Blood Urea Nitrogen 11 MG/DL Creatinine 1.10 MG/DL Random Glucose 327 MG/DL Total Protein 7.8 GM/DL Albumin 3.4 GM/DL Calcium Level 8.7 MG/DL Magnesium Level 2.0 MG/DL Alkaline Phosphatase 136 U/L Aspartate Amino Transf (AST/SGOT) 47 U/L Alanine Aminotransferase (ALT/SGPT) 117 U/L Total Bilirubin 0.4 MG/DL Sodium Level 136 MEQ/L Potassium Level 4.1 MEQ/L Chloride Level 101 MEQ/L Carbon Dioxide Level 26.4 MEQ/L Anion Gap 9 MEQ/L Estimat Glomerular Filtration Rate 69 ML/MIN Total Creatine Kinase 423 U/L Creatine Kinase MB 3.8 NG/ML Creatine Kinase MB % 0.9 % Troponin I LESS THAN 0.02 NG/ML B-Type Natriuretic Peptide 373 PG/ML MDM Medical Decision Making Medical Screen Exam Complete: Yes Emergency Medical Condition: Yes Medical Record Reviewed: Yes Interpretation(s) chest x-ray - CONCLUSION: Interstitial vascular prominence which may represent mild congestion. No evidence of consolidating airspace disease. Borderline cardiomegaly Differential Diagnosis COPD versus CHF versus pneumonia versus URI versus ACS Narrative Course 57-year-old male presents to the emergency department for evaluation of shortness of breath with exertion for 3 days. EKG, CBC, CMP, CK, troponin, BNP , magnesium, PTT, PT/INR, chest x-ray ordered and pending. CBC shows leukocytosis 13.4, anemia hemoglobin 9.9, hematocrit 31.7. CMP shows hyperglycemia 327. BNP is 373. CK is 423. Troponin is less than 0.02. Magnesium is 2.0. Coags show no acute abnormality. Chest x-ray shows interstitial vascular prominence which may represent mild congestion; No evidence of consolidating airspace disease; Borderline cardiomegaly. I discussed all findings and results with my attending physician, Dr. Morales. He agrees with plan and disposition. Patient is to increase his home Lasix. He is given Lasix 40 mg IV here. [facility] and [facility] supervisor maintenance and custodians. He is to return here for any acute, worsening of symptoms. Diagnosis Primary Impression: CHF (congestive heart failure) Qualified Codes: I50.9 - Heart failure, unspecified Referrals: Transcribing Operators Supervisor call for appointment Patient Instructions: General Instructions, Heart Failure (ED) Additional Instructions: Increase Lasix to 2 tabs in the AM, 1 in the PM. Follow up with a supervisor maintenance and custodians. Return to the emergency department for any acute, worsening of symptoms. Med/Other Pt SpecificInfo: No Change to Meds Disposition: 01 DISCHARGE HOME Condition: Stable Amna Burks HAND THERAPIST July 23, 2017 09:42
[2017-07-23] MEDS ORDERED: SODIUM CHLORIDE 0.9% FLUSH 10 ML FLUSH IVF PRN (09:45)
[2017-07-23] MEDS ORDERED: VENL150T PO (09:45)
[2017-07-23] MEDS ORDERED: ZOCO20TA PO (09:45)
[2017-07-23] MEDS ORDERED: METF1000 PO (09:45)
[2017-07-23] MEDS ORDERED: NOVOINJ6 (09:45)
[2017-07-23 09:50] VITALS: O2SAT 97
--- NOTE | 2017-07-23 10:06 | RADRPT ---
EXAM DATE: 07/23/2017 10:03 AM EDT AGE/SEX: 57 years / Male INDICATIONS: Short of breath CLINICAL DATA: This is the patient's initial encounter. Patient reports that signs and symptoms have been present for 3 days and indicates a pain score of 0/10. MEDICAL/SURGICAL HISTORY: Hypertension. Chronic obstructive pulmonary disease. None. COMPARISON: [facility], CHEST SINGLE AP, 10/20/2014. . FINDINGS: Mild generalized interstitial vascular prominence is noted. Heart is at the upper limits of normal in size to mildly enlarged. There is no evidence of significant consolidation, mass densities or effusions. CONCLUSION: Interstitial vascular prominence which may represent mild congestion. No evidence of consolidating airspace disease. Borderline cardiomegaly Electronically signed by: Franco Rey MD 07/23/2017 10:04 AM EDT
[2017-07-23] MEDS ORDERED: FURO1TAB60 PO (10:16)
[2017-07-23 10:42] LABS: AUTOMATED NEUTROPHIL # 10.2 TH/MM3 (1.8-7.7); BASOPHIL # 0.1 TH/MM3 (0-0.2); BASOPHIL % 0.5 % (0.0-2.0); EOSINOPHIL # 0.3 TH/MM3 (0-0.4); EOSINOPHIL % 2.4 % (0.0-4.0); HEMATOCRIT 31.7 % (39.0-51.0); HEMOGLOBIN 9.9 GM/DL (13.0-17.0); LYMPH % 15.2 % (9.0-44.0); MEAN CELL VOLUME 83.3 FL (80.0-100.0); MEAN CORPUSCULAR HEMOGLOBIN 26.1 PG (27.0-34.0); MEAN CORPUSCULAR HGB CONC 31.4 % (32.0-36.0); MEAN PLATELET VOLUME 10.8 FL (7.0-11.0); MONOCYTE # 0.8 TH/MM3 (0-0.9); NEUT % 75.9 % (16.0-70.0); PLATELET COUNT 248 TH/MM3 (150-450); RED BLOOD COUNT 3.81 MIL/MM3 (4.50-5.90); RED CELL DISTRIBUTION WIDTH 14.9 % (11.6-17.2); WHITE BLOOD COUNT 13.4 TH/MM3 (4.0-11.0)
[2017-07-23 10:46] LABS: CHLORIDE 101 MEQ/L (98-107); SODIUM (NA) 136 MEQ/L (136-145)
[2017-07-23 10:49] LABS: ALBUMIN 3.4 GM/DL (3.4-5.0); BICARBONATE 26.4 MEQ/L (21.0-32.0); BLOOD UREA NITROGEN 11 MG/DL (7-18); CALCIUM 8.7 MG/DL (8.5-10.1); GLUCOSE,RANDOM 327 MG/DL (74-106)
[2017-07-23 10:50] LABS: PROTHROMBIN TIME - PATIENT 10.5 SEC (9.8-11.6)
[2017-07-23 10:52] LABS: ALT (GPT) 117 U/L (12-78); AST (GOT) 47 U/L (15-37); GLOMERULAR FILTRATION RATE 69 ML/MIN (>89)
[2017-07-23 10:54] LABS: TOTAL BILIRUBIN ADULT 0.4 MG/DL (0.2-1.0); TOTAL PROTEIN 7.8 GM/DL (6.4-8.2)
[2017-07-23 10:55] LABS: ALKALINE PHOSPHATASE 136 U/L (45-117)
[2017-07-23 10:57] LABS: TROPONIN I LESS THAN 0.02 NG/ML (0.02-0.05)
[2017-07-23 11:00] VITALS: BP 164/82; PULSE 82; RESP 18; O2SAT 95
[2017-07-23] MEDS ORDERED: FUROSEMIDE 40 MG/4 ML VIAL IV PUSH ONE (11:15)
[2017-07-23 12:18] VITALS: BP 158/77; PULSE 72; RESP 18
--- NOTE | 2017-07-23 18:01 | EKG ---
Date Performed: 07/23/2017 Time Performed: 09:27:41 PTAGE: 57 years EKG: Sinus rhythm POSSIBLE RIGHT VENTRICULAR CONDUCTION DELAY NONSPECIFIC ST & T-WAVE ABNORMALITY BORDERLINE ECG Since the PREVIOUS TRACING , no significant change noted PREVIOUS TRACIN03/29/2015 17.56 DOCTOR: Marly Trimble Interpretating Date/Time 07/23/2017 17:58:02
[2017-07-24] MEDS ORDERED: BACL10TA PO (13:58)
[2017-07-24] MEDS ORDERED: ALBUAER3 INH (13:58)
[2017-07-24] MEDS ORDERED: FERR325T18 PO (13:58)
[2017-07-24] MEDS ORDERED: NOVONP2 SQ (14:02)
[2017-07-24] MEDS ORDERED: INSU100V2 SQ (14:04)
[2017-07-24] MEDS ORDERED: NOVORP2 SQ (14:04)
[2017-07-24] MEDS ORDERED: POTA-163 PO (14:45)
== END 2017-07-23 12:22 | disposition home or self-care (01) ==
LOC: PHED 09:13
DX: I50.9 Heart failure, unspecified (principal); J06.9 Acute upper respiratory infection, unspecified; J44.9 Chronic obstructive pulmonary disease, unspecified; E11.9 Type 2 diabetes mellitus without complications; R94.31 Abnormal electrocardiogram [ECG] [EKG]
CPT/HCPCS: 71045; 80053; 82550; 82552; 83735; 83880; 84484; 85025; 85610; 85730; 93005; 96374; 99285; J1940

== ENCOUNTER 2017-07-24 12:52 | Emergency (ER) | payer OTHER, MEDICARE ==
[~2017-07-24] VITALS: Ht 182.9 cm; Wt 139.0 kg
[~2017-07-24 12:52] MED LIST changes: -ALBUAER3 INH; -BENZ100 PO; +FURO1TAB60 PO; -FURO20TA PO; +METF1000 PO; +NOVOINJ6; -PRED50 PO; +VENL150T PO; -ZITH500T PO; +ZOCO20TA PO; -cholesterol med
[2017-07-24 12:53] VITALS: BP 149/69; PULSE 71; RESP 18; TEMP 98.9; O2SAT 98
--- NOTE | 2017-07-24 13:20 | PD ---
HPI Chief Complaint: Respiratory Symptoms Time Seen by Provider: 13:02 Travel History International Travel<30 days: No Contact w/Intl Traveler<30days: No Traveled to known affect area: No History of Present Illness HPI This is a 57-year-old male who has a history of congestive heart failure and hemorrhoids who presents to the emergency department with cramps on his chest wall on the right and left side, constant, worse when he walks associated with some shortness of breath and a productive cough with clear sputum. The patient also reports that he has been having a large amount of bleeding from his rectum. He says he has hemorrhoids there and over the past 24 hours he has been passing bright red blood clots from his rectum. He feels very fatigued and cannot walk 8-10 steps without getting short of breath. He was seen in the emergency department yesterday for this and was told to increase his Lasix. He took twice his normal dose of Lasix last evening and he said he has been urinating a fair amount. PFSH Past Medical History Hx Anticoagulant Therapy: No Depression: Yes Cancer: No Cardiovascular Problems: Yes High Cholesterol: Yes Chemotherapy: No Congestive Heart Failure: Yes COPD: Yes Cerebrovascular Accident: No Diabetes: Yes Diminished Hearing: No Endocrine: Yes Gastrointestinal Disorders: Yes GERD: Yes Genitourinary: Yes Hypertension: Yes Immune Disorder: No Implanted Vascular Access Dvce: No Kidney Stones: Yes Musculoskeletal: Yes Neurologic: Yes Psychiatric: No Reproductive: No Respiratory: Yes (COPD, sleep apnea) Immunizations Current: Yes Pneumonia: Yes Sleep Apnea: Yes (narcolepsy) ?: Not Past Surgical History Eye Surgery: Yes (METAL REMOVED FROM LEFT EYE) Neurologic Surgery: No Other Surgery: Yes Family History Family Hypercholesterolemia: Yes (FATHER) Social History Alcohol Use: No Tobacco Use: No Substance Use: Yes (marijuana ) Allergies-Medications (Allergen,Severity, Reaction): Coded Allergies: gabapentin (Verified Allergy, Intermediate, 07/24/17) tramadol (Unverified Adverse Reaction, Severe, Hallucinations, 07/24/17) Reported Meds & Prescriptions Reported Meds & Active Scripts Active Reported Humulin R Inj (Insulin Human Regular) 1,000 Unit/10 Ml Vial 10 Units SQ HS Novolin R Inj (Insulin Human Regular) 1,000 Unit/10 Ml Vial 15 Units SQ BID Novolin N Inj (Insulin Human NPH) 1,000 Unit/10 Ml Vial 65 Units SQ BID Baclofen 10 Mg Tab 10 Mg PO HS PRN Proair Hfa 8.5 GM Inh (Albuterol Sulfate) 90 Mcg/Act Aer 2 Puff INH Q4-6H PRN 108 mcg/actuation Ferrous Sulfate 325 Mg (65 Mg Iron) Tablet 325 Mg PO BIDPC Lasix (Furosemide) 40 Mg Tab 40 Mg PO BID Metformin (Metformin HCl) 1,000 Mg Tab 1,000 Mg PO BID With a meal Venlafaxine ER 24 HR (Venlafaxine HCl) 150 Mg Tab 150 Mg PO DAILY Zocor (Simvastatin) 20 Mg Tab 20 Mg PO DAILY Lisinopril 5 Mg Tab 5 Mg PO DAILY Metoprolol Tartrate 50 Mg Tab 50 PO BID Omeprazole 20 Mg Tab 20 PO DAILY Review of Systems Except as stated in HPI: all other systems reviewed are Neg Physical Exam Narrative GENERAL:Well appearing, no acute distress SKIN: Focused skin assessment warm and dry. HEAD: Atraumatic. Normocephalic. EYES: Pupils equal and round. No injection or drainage. ENT: Moist mucous membranes NECK: Trachea midline. CARDIOVASCULAR: Regular rate and rhythm. No murmur appreciated. RESPIRATORY: Clear to auscultation. Breath sounds equal bilaterally. GASTROINTESTINAL: Abdomen soft, non-tender, nondistended. Multiple external and internal hemorrhoids on rectal exam with a positive Hemoccult. MUSCULOSKELETAL: No obvious deformities. NEUROLOGICAL: Awake and alert. No obvious cranial nerve deficits. Moving all extremities. PSYCHIATRIC: Appropriate mood and affect; insight and judgment normal. Data Data Last Documented VS Vital Signs Date Time Temp Pulse Resp B/P (MAP) Pulse Ox O2 Delivery O2 Flow Rate FiO2 07/24/17 13:21 73 16 98 Room Air 07/24/17 12:53 98.9 149/69 (95) Orders Orders Complete Blood Count With Diff (07/24/17 13:17) Basic Metabolic Panel (Bmp) (07/24/17 13:17) Troponin I (07/24/17 13:17) ^ Insert Iv (07/24/17 13:17) Electrocardiogram (07/24/17 ) Labs Laboratory Tests Test 07/24/17 13:40 White Blood Count 9.1 TH/MM3 Red Blood Count 3.81 MIL/MM3 Hemoglobin 9.8 GM/DL Hematocrit 31.3 % Mean Corpuscular Volume 82.0 FL Mean Corpuscular Hemoglobin 25.6 PG Mean Corpuscular Hemoglobin Concent 31.3 % Red Cell Distribution Width 15.0 % Platelet Count 259 TH/MM3 Mean Platelet Volume 11.5 FL Neutrophils (%) (Auto) 61.9 % Lymphocytes (%) (Auto) 28.4 % Monocytes (%) (Auto) 6.5 % Eosinophils (%) (Auto) 2.7 % Basophils (%) (Auto) 0.5 % Neutrophils # (Auto) 5.8 TH/MM3 Lymphocytes # (Auto) 2.6 TH/MM3 Monocytes # (Auto) 0.6 TH/MM3 Eosinophils # (Auto) 0.2 TH/MM3 Basophils # (Auto) 0.0 TH/MM3 CBC Comment DIFF FINAL Differential Comment Blood Urea Nitrogen 11 MG/DL Creatinine 1.00 MG/DL Random Glucose 157 MG/DL Calcium Level 9.1 MG/DL Sodium Level 137 MEQ/L Potassium Level 3.7 MEQ/L Chloride Level 100 MEQ/L Carbon Dioxide Level 30.3 MEQ/L Anion Gap 7 MEQ/L Estimat Glomerular Filtration Rate 77 ML/MIN Troponin I LESS THAN 0.02 NG/ML [facility] Medical Decision Making Medical Screen Exam Complete: Yes Emergency Medical Condition: Yes Interpretation(s) Hemoglobin is 9.8 from 9.9 yesterday Electrolytes are reassuring Troponin is normal same as yesterday at 10:30 AM Differential Diagnosis Acute coronary syndrome, symptomatic anemia, congestive heart failure, electrolyte abnormality Narrative Course This is a 57-year-old male who has a history of congestive heart failure who presents to the emergency department with some muscle cramping, some shortness of breath and concern of bright red blood per rectum. Patient was placed on a monitor and an IV was established. Vital signs are all reassuring and he has a benign physical exam. He has external and internal hemorrhoids on exam. Hemoglobin is stable from yesterday. Troponin is also stable from yesterday. I suspect patient's symptoms continue to be related to congestive heart failure and I encouraged him to continue taking his Lasix as instructed yesterday. He can follow-up with his primary care physician as an outpatient and he has an outpatient colonoscopy scheduled already. [facility] Point of Care Internal Pos. & Neg. Controls: Passed Fecal Specimen Occult Blood: Positive Diagnosis Primary Impression: Bright red rectal bleeding Patient Instructions: General Instructions Additional Instructions: If you develop severe chest pain, shortness of breath, sweating, lightheadedness , dizziness or difficulty breathing return to the emergency department immediately. Followup with your primary care physician in 2-3 days if your symptoms are not resolved. Med/Other Pt SpecificInfo: No Change to Meds Disposition: 01 DISCHARGE HOME Condition: Stable Carmen Sommers MD July 24, 2017 13:20
[2017-07-24 13:57] LABS: AUTOMATED NEUTROPHIL # 5.8 TH/MM3 (1.8-7.7); BASOPHIL % 0.5 % (0.0-2.0); EOSINOPHIL # 0.2 TH/MM3 (0-0.4); EOSINOPHIL % 2.7 % (0.0-4.0); HEMATOCRIT 31.3 % (39.0-51.0); HEMOGLOBIN 9.8 GM/DL (13.0-17.0); LYMPH % 28.4 % (9.0-44.0); LYMPHOCYTE # 2.6 TH/MM3 (1.0-4.8); MEAN CORPUSCULAR HEMOGLOBIN 25.6 PG (27.0-34.0); MEAN CORPUSCULAR HGB CONC 31.3 % (32.0-36.0); MEAN PLATELET VOLUME 11.5 FL (7.0-11.0); MONO % 6.5 % (0.0-8.0); MONOCYTE # 0.6 TH/MM3 (0-0.9); NEUT % 61.9 % (16.0-70.0); PLATELET COUNT 259 TH/MM3 (150-450); RED BLOOD COUNT 3.81 MIL/MM3 (4.50-5.90); WHITE BLOOD COUNT 9.1 TH/MM3 (4.0-11.0)
[2017-07-24] MEDS ORDERED: ALBUAER3 INH (13:58)
[2017-07-24] MEDS ORDERED: FERR325T18 PO (13:58)
[2017-07-24] MEDS ORDERED: BACL10TA PO (13:58)
[2017-07-24] MEDS ORDERED: NOVONP2 SQ (14:02)
[2017-07-24] MEDS ORDERED: INSU100V2 SQ (14:04)
[2017-07-24] MEDS ORDERED: NOVORP2 SQ (14:04)
[2017-07-24 14:07] LABS: CHLORIDE 100 MEQ/L (98-107); SODIUM (NA) 137 MEQ/L (136-145)
[2017-07-24 14:10] LABS: CALCIUM 9.1 MG/DL (8.5-10.1)
[2017-07-24 14:32] LABS: BICARBONATE 30.3 MEQ/L (21.0-32.0); BLOOD UREA NITROGEN 11 MG/DL (7-18); GLOMERULAR FILTRATION RATE 77 ML/MIN (>89); GLUCOSE,RANDOM 157 MG/DL (74-106); TROPONIN I LESS THAN 0.02 NG/ML (0.02-0.05)
[2017-07-24] MEDS ORDERED: POTA-163 PO (14:45)
--- NOTE | 2017-07-24 14:45 | PD ---
Data Data Last Documented VS Vital Signs Date Time Temp Pulse Resp B/P (MAP) Pulse Ox O2 Delivery O2 Flow Rate FiO2 07/24/17 13:21 73 16 98 Room Air 07/24/17 12:53 98.9 149/69 (95) Orders Orders Complete Blood Count With Diff (07/24/17 13:17) Basic Metabolic Panel (Bmp) (07/24/17 13:17) Troponin I (07/24/17 13:17) ^ Insert Iv (07/24/17 13:17) Electrocardiogram (07/24/17 ) Ed Discharge Order (07/24/17 14:40) Labs Laboratory Tests Test 07/24/17 13:40 White Blood Count 9.1 TH/MM3 Red Blood Count 3.81 MIL/MM3 Hemoglobin 9.8 GM/DL Hematocrit 31.3 % Mean Corpuscular Volume 82.0 FL Mean Corpuscular Hemoglobin 25.6 PG Mean Corpuscular Hemoglobin Concent 31.3 % Red Cell Distribution Width 15.0 % Platelet Count 259 TH/MM3 Mean Platelet Volume 11.5 FL Neutrophils (%) (Auto) 61.9 % Lymphocytes (%) (Auto) 28.4 % Monocytes (%) (Auto) 6.5 % Eosinophils (%) (Auto) 2.7 % Basophils (%) (Auto) 0.5 % Neutrophils # (Auto) 5.8 TH/MM3 Lymphocytes # (Auto) 2.6 TH/MM3 Monocytes # (Auto) 0.6 TH/MM3 Eosinophils # (Auto) 0.2 TH/MM3 Basophils # (Auto) 0.0 TH/MM3 CBC Comment DIFF FINAL Differential Comment Blood Urea Nitrogen 11 MG/DL Creatinine 1.00 MG/DL Random Glucose 157 MG/DL Calcium Level 9.1 MG/DL Sodium Level 137 MEQ/L Potassium Level 3.7 MEQ/L Chloride Level 100 MEQ/L Carbon Dioxide Level 30.3 MEQ/L Anion Gap 7 MEQ/L Estimat Glomerular Filtration Rate 77 ML/MIN Troponin I LESS THAN 0.02 NG/ML [facility] Supervised Visit with COOPER: No Narrative Course Patient is not on any potassium in the setting of Lasix and his Lasix was recently increased. I suspect his muscle cramps may be due to relative hypokalemia. He was started on 20 mEq of potassium a day. Diagnosis Primary Impression: Bright red rectal bleeding Patient Instructions: General Instructions Additional Instruction: If you develop severe chest pain, shortness of breath, sweating, lightheadedness , dizziness or difficulty breathing return to the emergency department immediately. Followup with your primary care physician in 2-3 days if your symptoms are not resolved. Med/Other Pt SpecificInfo: Prescription(s) given Scripts Potassium Chloride ER (Potassium Chloride ER) 20 Meq Tab 20 MEQ PO DAILY for Electrolyte Replacement, #14 TAB 0 Refills Prov: Carmen Sommers MD 07/24/17 Disposition: 01 DISCHARGE HOME Condition: Stable Carmen Sommers MD July 24, 2017 14:45
[2017-07-24 14:56] VITALS: BP 139/73
--- NOTE | 2017-07-25 14:26 | EKG ---
Date Performed: 07/24/2017 Time Performed: 13:23:17 PTAGE: 57 years EKG: Sinus rhythm INCOMPLETE RIGHT BUNDLE BRANCH BLOCK NONSPECIFIC ST & T-WAVE ABNORMALITY BORDERLINE ECG Since PREVIOUS TRACING , no significant change noted. PREVIOUS TRACIN07/23/2017 09.27 DOCTOR: Jose Mcfadden Interpretating Date/Time 07/25/2017 14:24:30
== END 2017-07-24 14:57 | disposition home or self-care (01) ==
LOC: PHED 12:52
DX: K62.5 Hemorrhage of anus and rectum (principal); R25.2 Cramp and spasm; R53.83 Other fatigue; E11.9 Type 2 diabetes mellitus without complications; I11.0 Hypertensive heart disease with heart failure; J44.9 Chronic obstructive pulmonary disease, unspecified; R94.31 Abnormal electrocardiogram [ECG] [EKG]
CPT/HCPCS: 80048; 84484; 85025; 93005; 99284